=== PATIENT | female | born 1955 | race Caucasian/White ===

== ENCOUNTER → 2017-02-07 | Outpatient (CLI) | payer BC ==
--- NOTE | 2017-02-07 15:37 | MAMMOGRAPHY REPORT ---
BILATERAL DIGITAL SCREENING MAMMOGRAM WITH CAD: 02/07/2017 CLINICAL HISTORY: Routine screening. TECHNIQUE: Current study was also evaluated with a Computer Aided Detection (CAD) system. Bilateral CC and MLO views were obtained. COMPARISON: Comparison is made to exams dated: 02/07/2016 mammogram, 01/23/2014 mammogram, 02/01/2015 ma mmogram, 01/17/2013 mammogram, 01/18/2012 mammogram, and 01/12/2012 mammogram - [facility] nter. BREAST COMPOSITION: There are scattered areas of fibroglandular density in both breasts. FINDINGS: No suspicious masses, calcifications, or areas of architectural distortion are noted in ei ther breast. There has been no significant interval change compared to prior exams. IMPRESSION: ACR BI-RADS CATEGORY 1: NEGATIVE There is no mammographic evidence of malignancy. A 1 year screening mammogram is recommended. The pa tient will receive written notification of the results. Approximately 10% of breast cancers are not detected with mammography. A negative mammographic report should not delay biopsy if a clinically suggestive mass is present. Nallely Still M.D. ah/:02/07/2017 07:42:17 Pulp Bleacher: Matt Nesbitt RT(R)(M), [facility] letter sent: Normal 1/2 BI-RADS Code: ACR BI-RADS Category 1: Negative
== END | disposition home or self-care (01) ==
LOC: C.MAMM 07:08
PROVIDERS: ATTEND Obstetrics & Gynecology
DX: Z12.31 Encounter for screening mammogram for malignant neoplasm of breast (principal)

== ENCOUNTER → 2018-03-14 | Outpatient (CLI) | payer OTHER ==
--- NOTE | 2018-03-14 15:40 | MAMMOGRAPHY REPORT ---
BILATERAL DIGITAL SCREENING MAMMOGRAM TOMOSYNTHESIS WITH CAD: 03/14/2018 TECHNIQUE: The study was acquired using full field digital technology and interpreted from soft copy. Breast tomosynthesis in addition to standard 2D mammography was performed. Current study was also ev aluated with a Computer Aided Detection (CAD) system. COMPARISON: Comparison is made to exams dated: 02/07/2017 mammogram, 02/07/2016 mammogram, 02/01/2015 ma mmogram, 01/17/2013 mammogram, 07/19/2012 mammogram, and 01/18/2012 mammogram - [facility] enter. BREAST COMPOSITION: There are scattered areas of fibroglandular density in both breasts. FINDINGS: No suspicious masses, calcifications, or areas of architectural distortion are noted in either breast . There has been no significant interval change compared to prior exams. IMPRESSION: ACR BI-RADS CATEGORY 1: NEGATIVE There is no mammographic evidence of malignancy. A 1 year screening mammogram is recommended.( 019) The patient will receive written notification of the results. Some breast cancers are not detected with mammography. A negative mammographic report should not steven y biopsy if a clinically suggestive mass is present. Nallely Still M.D. ah/:03/14/2018 08:26:19 Vp Strategy: RT Roscoe(Shelia)(M), [facility] letter sent: Normal 1/2 BI-RADS Code: ACR BI-RADS Category 1: Negative
== END | disposition home or self-care (01) ==
LOC: C.MAMM 07:54
PROVIDERS: ATTEND Obstetrics & Gynecology
DX: Z12.31 Encounter for screening mammogram for malignant neoplasm of breast (principal)

== ENCOUNTER 2024-11-14 05:23 | Observation (INO) ==
--- NOTE | 2024-10-16 09:31 | PAT Medication Instructions ---
Medication Instructions Date of Service October 16, 2024 Home Medications Medication Instructions Recorded amlodipine 5 mg tablet 5 mg PO QAM #90 tabs 10/10/23 doxycycline hyclate 50 mg tablet 50 mg PO DAILY #90 tabs 10/10/23 ergocalciferol (vitamin D2) 1,250 1,250 mcg PO WK 12 weeks #14 caps 10/10/23 mcg (50,000 unit) capsule amlodipine 5 mg tablet 5 mg PO QAM cholecalciferol (vitamin D3) 125 mcg (5,000 unit) capsule 125 mcg PO DAILY doxycycline hyclate 50 mg tablet 50 mg PO DAILY ergocalciferol (vitamin D2) 1,250 mcg (50,000 unit) capsule 1,250 mcg PO WK ibuprofen 400 mg tablet 400 mg PO Q8H PRN Pain atorvastatin 20 mg tablet (Lipitor) 20 mg PO HS gabapentin 100 mg capsule (Neurontin) 100 mg PO DAILY neck pain omeprazole 40 mg capsule,delayed release 40 mg PO QAM spironolactone 25 mg tablet 25 mg PO QAM ASK your surgeon for instructions ibuprofen 400 mg tablet 400 mg PO Q8H PRN Pain DO NOT take the morning of surgery cholecalciferol (vitamin D3) 125 mcg (5,000 unit) capsule 125 mcg PO DAILY ergocalciferol (vitamin D2) 1,250 mcg (50,000 unit) capsule 1,250 mcg PO WK spironolactone 25 mg tablet 25 mg PO QAM Take morning of surgery With a small sip of water, OTHERWISE NOTHING TO EAT OR DRINK AFTER MIDNIGHT: amlodipine 5 mg tablet 5 mg PO QAM doxycycline hyclate 50 mg tablet 50 mg PO DAILY gabapentin 100 mg capsule (Neurontin) 100 mg PO DAILY neck pain omeprazole 40 mg capsule,delayed release 40 mg PO QAM Take evening before surgery atorvastatin 20 mg tablet (Lipitor) 20 mg PO HS Other Notes If you have any questions please call us at [phone] or [phone] or [phone] or [phone]
--- NOTE | 2024-10-24 10:24 | Anesthesiology Consultation ---
Date of Service October 24, 2024 Assessment & Plan (1) Encounter for pre-operative examination: - Infectious disease screening: Per assessment on 10/24/24- Patient had symptom onset 10/12/24 of cough/fatigue/sore throat. Presumed Influenza A as tested positive 10/14/24 ( had [facility] admission/now discharged). Patient's symptoms have resolved except rare dry, cough. DOS 11/14/24. Symptom onset > 11 days prior to surgery. Patient advised to contact PAT/surgeon if not at baseline prior to surgery. Nothing further needed at this time. - Outpatient joint assessment: Pt currently scheduled for inpatient pathway. If surgeon requests review for outpatient joint pathway, patient is an acceptable candidate for outpatient joint program from anesthesia standpoint pending surgeon's office assessment that patient is motivated, has good support and completes [facility] Program preop requirements. - Awaiting upcoming PCP visit ([facility], appt 10/27). Patient otherwise acceptable risk for surgery. Chart Review Chart Review: Patient seen in Pre Admission Testing Teaching & Discussion Pre-Anesthesia Teaching/Discussion Notes: Instructed NPO after midnight before surgery,except medications with 15 cc of water. Medication instructions provided according to the PAT guidelines. History Surgery Operation Date: 11/14/24 10:35 Proposed Procedures p Right Total Hip Arthroplasty - Rodolfo Laird MD Height/Weight Height: 5 ft 5.5 in Weight: 77.5 kg Allergies Allergy/AdvReac Type Severity Reaction Status Date / Time olmesartan [From Benicar] AdvReac Intermediate Diarrhea Verified 10/15/24 14:35 Medications Home Medications Medication Instructions Recorded Confirmed Last Taken amlodipine 5 mg tablet 5 mg PO QAM #90 tabs 10/10/23 10/15/24 Unknown cholecalciferol (vitamin D3) 125 125 mcg PO DAILY 10/10/23 10/15/24 Unknown mcg (5,000 unit) capsule doxycycline hyclate 50 mg tablet 50 mg PO DAILY #90 tabs 10/10/23 10/15/24 Unknown ergocalciferol (vitamin D2) 1,250 1,250 mcg PO WK 12 weeks #14 caps 10/10/23 10/15/24 Unknown mcg (50,000 unit) capsule ibuprofen 400 mg tablet 400 mg PO Q8H PRN Pain 04/09/24 10/15/24 Unknown atorvastatin 20 mg tablet (Lipitor) 20 mg PO HS 10/15/24 10/15/24 Unknown gabapentin 100 mg capsule 100 mg PO DAILY neck pain 10/15/24 10/15/24 Unknown (Neurontin) omeprazole 40 mg capsule,delayed 40 mg PO QAM 10/15/24 10/15/24 Unknown release spironolactone 25 mg tablet 25 mg PO QAM 10/15/24 10/15/24 Unknown Past Medical History Medical History (Updated 10/24/24 @ 10:43 by Keya Weber) Arthritis of right hip GERD (gastroesophageal reflux disease) History of kidney stones Passed on own HTN (hypertension) Hyperlipidemia Osteopenia Rosacea Exercise / Class Metabolic Activity II 4-5 Yardwork/Stairs/Walk up hill (one FS: No CP, no SOB) Past Family History Family History Uncle Colonic polyp Myocardial infarction Diabetes Mother Colorectal cancer, Onset Age: 79 Father Hypertension Stroke Grandfather (Paternal) Stroke Sister Diabetes Denies family history of Ovarian cancer Prostate cancer Breast cancer Past Surgical History Surgical History (Updated 10/24/24 @ 10:43 by Keya Weber) Adverse effect of anesthesia Slow to wake History of colonoscopy History of radiofrequency ablation (RFA) of nerve of cervical spine 09/03/24 [facility] History of wisdom tooth extraction S/P cataract surgery R/L S/P dilation and curettage S/P hysterectomy S/P tooth extraction S/P tubal ligation Past Anesthesia History No Family Hx of Anesthesia Complications and Other (Slow to wake) History of PONV No Hx of PONV and No Hx of Motion Sickness Social History Smoking Status: Never smoker Do You Dip or Chew Tobacco: No Hx Alcohol Use: No Hx Substance Use: No substance use type: does not use Review of Systems Tooth extraction (#18) done 10/21/24- healing well, currently on Amoxicillin (to be completed in a few days). Surgeon aware. Patient denies chest pain, shortness of breath, dyspnea on exertion, fever, chills, cough, wheezing, palpitations. Physical Exam Vital Signs BP 110/73 P 56 TEMP 98.4 SP02 96%RA RESP 16 Physical Full cervical extension range of motion. Full TMJ range of motion. TMD 3 finger breaths Mallampati Score III Dentition: missing tooth #18, several crowns Lungs: clear throughout to auscultation Cardiac: regular rate and rhythm, no murmurs noted Spine: normal Carotid arteries: negative bruit Extremities: no LE edema Lab Results Anesthesia Preop Results Results Anesthesia Widget: WBC 6.49 K/ul (4.8-10.8) 10/24/24 Hgb 13.9 g/dl (12.0-16.0) 10/24/24 Hct 41.9 % (37.0-47.0) 10/24/24 Plt 290 K/uL (130-400) 10/24/24 Na 140 mmol/L (136-145) 10/08/24 K 4.6 mmol/L (3.5-5.1) 10/08/24 Cl 103 mmol/L (98-107) 10/08/24 CO2 29 mmol/L (21-32) 10/08/24 BUN 17 mg/dl (6-23) 10/08/24 Creat 1.10 mg/dl (0.6-1.2) 10/08/24 Glucose Level 82 mg/dl (70-99(Fasting)) 10/08/24 PT 10.9 Seconds (9.0-12.0) 10/24/24 PTT 26 Seconds (21-31) 10/24/24 INR 1.0 (0.9-1.1) 10/24/24 Blood Type O Positive 10/24/24 Antibody Screen NEGATIVE 10/24/24 Testing Electrocardiogram Date: 10/24/24 SB at 50bpm. "Otherwise normal ECG" Chest X-Ray Date: 10/24/24 FINDINGS: Heart size and pulmonary vasculature are normal. No effusion or consolidation. IMPRESSION: No acute findings.
--- NOTE | 2024-11-07 07:55 | History & Physical Report ---
Date of Service November 07, 2024 Assessment & Plan (1) Arthritis of hip: 69-year-old female with a several year history of increasing right hip pain discomfort and arthritis. Looks inflammatory in nature. She has failed conservative treatment. It is affecting her quality life she like to have her hip fixed. Plan: Mustapha take her to the operating room do a right total hip placement for the [place] of this procedure explained. Informed consent was obtained. She is planned to be discharged to home with some home health. Will use aspirin for DVT prophylaxis. (2) Bursitis of right hip: History of Present Illness Chief Complaint: . Persistent and progressive right hip pain. Primary Care Provider: Liz Osman MD . Patient is a 69-year-old female who has a several history of increasing right hip pain discomfort described to gotten worse over time. She initially saw Dr. Willis off over [facility] and was treated with some physical therapy and some bursal injections. This became less successful over time. Over time her pain is migrated more to the groin area. She did have an MRI back in 2022 which showed significant hip arthritis. She has had several intra-articular hip injection which have become less successful over time. She describes groin pain thigh pain. To the more she is up and onto more it hurts and the more she limps. She is ready to have her hip fixed. Allergies Allergy/AdvReac Type Severity Reaction Status Date / Time olmesartan [From Benicar] AdvReac Intermediate Diarrhea Verified 10/29/24 08:19 Home Medications Medication Instructions Recorded Confirmed Type cholecalciferol (vitamin D3) 125 125 mcg PO DAILY 10/10/23 10/29/24 History mcg (5,000 unit) capsule doxycycline hyclate 50 mg tablet 50 mg PO DAILY #90 tabs 10/10/23 10/29/24 Rx ibuprofen 400 mg tablet 400 mg PO Q8H PRN Pain 04/09/24 10/29/24 History gabapentin 100 mg capsule 100 mg PO DAILY neck pain 10/15/24 10/29/24 History (Neurontin) amlodipine 5 mg tablet 5 mg PO QAM #90 tabs 10/27/24 10/29/24 Rx atorvastatin 20 mg tablet (Lipitor) 20 mg PO HS #90 tabs 10/27/24 10/29/24 Rx fluoxetine 20 mg tablet 20 mg PO DAILY #30 tabs 10/27/24 10/29/24 Rx omeprazole 40 mg capsule,delayed 40 mg PO QAM #90 caps 10/27/24 10/29/24 Rx release spironolactone 25 mg tablet 25 mg PO QAM #90 tabs 10/27/24 10/29/24 Rx Past Med/Surg History Problem List Encounter for pre-operative examination Cervical spondylosis Elevated lipoprotein(a) Osteopenia Arthritis of hip Bursitis of right hip Medial epicondylitis Medical History History of kidney stones Passed on own Osteopenia Arthritis of right hip Hyperlipidemia Rosacea GERD (gastroesophageal reflux disease) HTN (hypertension) Surgical History History of radiofrequency ablation (RFA) of nerve of cervical spine 09/03/24 [facility] Adverse effect of anesthesia Slow to wake History of colonoscopy History of wisdom tooth extraction S/P cataract surgery R/L S/P tubal ligation S/P tooth extraction S/P hysterectomy S/P dilation and curettage Family History Uncle Colonic polyp Myocardial infarction Diabetes Mother Colorectal cancer, Onset Age: 79 Father Hypertension Stroke Grandfather (Paternal) Stroke Sister Diabetes Denies family history of Ovarian cancer Prostate cancer Breast cancer Social History Smoking Status: Never smoker Second Hand Exposure: No; Do You Dip or Chew Tobacco: No; Hx Alcohol Use: No Hx Substance Use: No Preferred Language: Sinhala Communication Ability: Effective Associate Program Manager Required: No Beliefs That Will Affect Care: None marital status: Current Living Situation: Spouse current occupational status: retired Feels Safe at Home: Yes Childhood Exposure to Second-Hand Smoke: No Dental Care, Regularly: Yes Physical Activity Frequency: 3-4 Times per Week Seatbelt Use: always Sunscreen Use: Yes Assistive Devices: None Review of Systems All systems reviewed & are unremarkable except as noted in HPI & below. Physical Exam . Physical examination reveals a pleasant healthy female. Looks be in reasonably good health. Examination of the right hip and leg reveal patient walks with slightly antalgic gait. Leg lengths appear equal. She does have some stiffness and pain with hip motion. She can internally rotate to about 10 degrees but is painful. Negative straight leg raise. She is neurologically intact. A little bit of lateral hip tenderness to palpation. Respiratory normal respiratory effort, lungs clear to auscultation Cardiovascular RRR, no murmur, no edema Gastrointestinal (Abdomen) normal bowel sounds, soft, nontender, no hepatosplenomegaly Results & Data Results & Data Laboratory Results . Diagnostic Findings . X-rays of the right hip were reviewed. Shows progressive right hip arthritis. Got fairly concentric disease with cystic changes in the acetabular and femoral head. Bone density looks good. The left hip looks normal. PG Care Time/CCT Total # of Minutes Spent Total Time Spent with Patient: Total time spent is greater than 50% in coordination of care (as documented) at patient's floor/unit and/or counseling patient: Coding Level of Care Code None Diagnoses Arthritis of hip M16.10 Bursitis of right hip M70.71
[2024-11-14] MEDS: METOCLOPRAMIDE HCL 10 MG TABLET PO SCH (05:51)
[2024-11-14] MEDS: CeleBREX 200 MG CAP PO SCH (05:51)
[2024-11-14] MEDS: FAMOTIDINE 20 MG TAB PO SCH (05:51)
[2024-11-14] MEDS: ACETAMINOPHEN 500 MG TAB PO SCH ×2 (05:51→12:06)
[2024-11-14] MEDS: LR 500ML BOLUS, THEN 15ML/HR IV SCH (06:18)
[2024-11-14] MEDS: dexAMETHasone**PF** 10 MG/ML VIAL IV SCH (06:18)
[2024-11-14] MEDS ORDERED: BUPIVACAINE 0.5 % 5 MG/1 ML PF 10ML VIAL ONE (06:29)
[2024-11-14] MEDS ORDERED: ePHEDrine sulfate 50 MG/ML AMP ONE (06:30)
[2024-11-14] MEDS ORDERED: PHENYLEPHRINE 100MCG/ML 5ML SYR ONE (06:30)
[2024-11-14] MEDS ORDERED: fentaNYL citrate PF 100 MCG/2 ML VIAL ONE (06:31)
[2024-11-14] MEDS ORDERED: MIDAZOLAM HCL 1 MG/ML 2ML VIAL ONE (06:31)
[2024-11-14] MEDS ORDERED: PROPOFOL IV EMULSION 10 MG/ML 20 ML VIAL IV ONE ×4 (06:32)
--- NOTE | 2024-11-14 06:44 | History & Physical Bridge Note ---
Date of Service November 14, 2024 History & Physical Bridge Note I have examined the patient, reviewed the History & Physical and in the interval since the performance of the History & Physical I have noted the following changes of clinical significance: no changes noted
[2024-11-14] MEDS: TRANEXAMIC ACID 1,000 MG **IV Pre-op IV SCH (06:48)
[2024-11-14] MEDS ORDERED: HYDROmorphone INJ 1 MG/ML SYRINGE IV PRN (06:57)
[2024-11-14] MEDS ORDERED: FLUMAZENIL 0.1 MG/1 ML 10 ML VIAL IV PRN (06:57)
[2024-11-14] MEDS ORDERED: ePHEDrine sulfate 50 MG/ML AMP IV PRN (06:57)
[2024-11-14] MEDS ORDERED: ONDANSETRON INJ 2 MG/ML 2 ML VIAL IV PRN ×2 (06:57→10:23)
[2024-11-14] MEDS ORDERED: fentaNYL citrate PF 100 MCG/2 ML VIAL IV PRN (06:57)
[2024-11-14] MEDS ORDERED: ATROPINE SULFATE 0.1 MG/ML 10ML SYR IV PRN (06:57)
[2024-11-14] MEDS ORDERED: NALOXONE HCL 0.4 MG/1 ML VIAL/CARP IV PRN ×2 (06:57→10:23)
[2024-11-14] MEDS ORDERED: PROMETHAZINE HCL 6.25 MG in SODIUM CHLORIDE 0.9% 50 ML IV PRN (06:57)
[2024-11-14] MEDS: ceFAZolin 2000MG 2,000 MG/15 ML SYR IV SCH (06:57)
[2024-11-14] MEDS ORDERED: ONDANSETRON INJ 2 MG/ML 2 ML VIAL ONE (07:21)
[2024-11-14] MEDS ORDERED: KETOROLAC 30 MG/ML VIAL ONE (07:22)
[2024-11-14] MEDS: BUPIVACAINE/EPINEPHRINE 0.5% MPF 1:200,000 30 ML VIAL ONE (07:34)
--- NOTE | 2024-11-14 08:28 | Operative Report ---
PG Post Operative Report Pre & Post Diagnosis Operation Date: 11/14/24 07:00 Pre-Op Diagnosis: Right Hip Degenerative Joint Disease Post-Op Diagnosis: Right Hip Degenerative Joint Disease I identified the patient and participated in the time-out.: Yes Procedure Operation Date: 11/14/24 07:00 Actual Procedures p Right Total Hip Arthroplasty, Uncemented - Rodolfo Laird MD Surgeon Rodolfo Laird MD Anesthesiologist And Critical Care Terry Carrero PA-C Estimated Blood Loss 100 Findings Consistent with Post-Op Diagnosis Operative findings revealed advanced right hip DJD. She had a moderate-sized hip joint effusion. She had grade 4 [id number] disease. Not much in the way of osteophyte formation. Specimens Right femoral head sent for pathology. Anesthesia Type Spinal MAC Complications none Disposition Accompanied Patient To Recovery: No Indications Patient is a 69-year-old female whose had a several year history of increasing right hip pain discomfort described to gotten worse over time. She been through extensive conservative treatment over the past several years. Her symptoms continue to progress and will became less responsive conservative care. X-rays show progressive hip arthritis. She elected proceed with right total hip arthroplasty. Description of Procedure Operative implants consists of: 1 Biomet G7 size 54 mm acetabular shell. 2. 6.5 cancellous acetabular screws 1 at 35 mm length by 30 mm length. 3. Lejunior hole mender hand. 4. Highly cross-linked polyethylene liner with a 54 mm outer diameter and 36 mm inner diameter. 5. DePuy Corail size 11 KLA femoral stem. 6. +5/36 mm ceramic articular ball. The patient was taken the operating, identified, placed on the operating table in the supine position. All conductors were appropriately padded. IV antibiotics were provided by the anesthesia team. A spinal anesthetic had been implemented holding area. A Michelle catheter was placed in a sterile fashion. The patient was then placed in the left lateral decubitus position. An axillary roll was placed. A Stulberg positioner was used for positioning. The right hip and leg were then prepped and draped in usual sterile fashion. A posterolateral approach to the right hip was then performed to a curvilinear incision centered over the greater trochanter. Sharp dissection was got through subcutaneous tissue down below the IT band gluteal fascia. The IT band gluteal fascia was sized longitudinally in line with skin incision. The underlying greater bursa was excised. The piriformis and external rotators along with the posterior hip joint capsule were then released from the posterior aspect of the at the hip as a single layer. Great care was taken throughout the procedure protect the sciatic nerve at all times. The hip was then internally rotated and dislocated. A femoral neck osteotomy cut was made with a Final Cut about 8 mm above the lesser trochanter. Femoral head was removed and sent for pathology. The femur was retracted anteriorly. Attention then drawn the acetabulum. The acetabulum labrum was excised. The pulmonary fat was excised. Sequential reaming the acetabulum was then performed again with a size 43 and progressing up to a 53. I reamed a little bit with a 54 reamer and then placed a 54 mm Biomet G7 acetabular shell in about 40 degrees lateral opening and 20 degrees of anteversion. It was fixed with two 6.5 screws. A trial liner was placed. Attention was then drawn the femur. The proximal femur was entered with cookie-cutter followed by canal finder. I then broached beginning the size 8 and progressed up to 11 we got excellent fit at 11. I trialed the hip and the +5 articular ball provided full stability appropriate soft tissue tension, and what appeared to be equal leg lengths. We elect to place these implants. All trial implants were removed. An apex hole mender hand was placed. A highly cross-linked polyethylene liner was placed. A size 11 KLA femoral stem was impacted in position. +5/36 mm articular ball was placed hip. The hip was then relocated and once again found to be stable. Attention drawn thrombosing. The wound was irrigated coconuts and pulsatile lavage solution. The posterior capsule and external rotators then repaired through drill holes in the posterior trochanter with #2 Tycron suture. The IT band gluteal fascia were then closed in 1 PDS suture running fashion. The subcutaneous tissue was then closed in 2 layers the deep layer #1 Vicryl suture and subcutaneous tissues with 2-0 Dexon suture in a buried interrupted fashion. Skin was closed skin eddi. Leg was then cleaned and dried and a sterile dressing with Xeroform, 4 fours, ABD pad and foam tape was applied. The patient then transferred to the recovery in stable condition. Patient tolerated procedure well and there were no complications. Terry Carrero, my physician assistant technician, was present for the entire procedure. His assistance was essential and required for appropriate patient positioning, prepping and draping, surgical exposure, performing the technical details of the operation, placement the implants, closure of the wound, and placement of the sterile bandage. I attest to the content of the Intraoperative Record and any orders documented therein. Any exceptions are noted below.
--- NOTE | 2024-11-14 08:58 | XRay Report ---
XR hip 1V RT w pelvis CLINICAL HISTORY: IN PACU - Post Surgical COMPARISON: 02/20/2022 FINDINGS: Interval right hip prosthesis shows no hardware complication. There is expected soft tissu e gas. Skin eddi are present bilaterally. IMPRESSION: Unremarkable postoperative exam. ACT 112: Negative or not required by law. Electronically signed by: Song Jin M.D. 11/14/2024 8:57 AM
--- NOTE | 2024-11-14 10:08 | Anesthesiology Progress Note ---
Date of Service November 14, 2024 Anesthesia Post Procedure Vital Signs Vital Signs: Temp Pulse Resp BP Pulse Ox O2 Del Method O2 Flow Rate 11/14/24 09:45 68 16 114/59 L 96 Nasal Cannula 2 11/14/24 09:30 36.4 C L 63 17 113/61 93 Room Air 11/14/24 09:20 66 17 108/57 L 98 Room Air 11/14/24 09:10 67 15 106/61 95 Room Air 11/14/24 09:00 67 14 108/55 L 92 Room Air 11/14/24 08:50 69 15 111/62 94 Oxymask 3 11/14/24 08:40 75 18 103/63 92 Oxymask 3 11/14/24 08:30 73 19 102/55 L 97 Oxymask 6 11/14/24 08:20 71 17 104/53 L 97 Oxymask 6 11/14/24 08:17 36.3 C L 72 20 103/54 L 96 Oxymask 6 11/14/24 05:40 36.7 C 62 20 130/72 96 Room Air Pain Intensity Right Hip: Pain Intensity: 2 Transfer of Care Handoff Completed per policy Notes Mental Status: alert / awake / arousable Patient Amnestic to Procedure: Yes Nausea / Vomiting: adequately controlled Pain: adequately controlled Airway Patency, RR, SpO2: stable & adequate BP & HR: stable & adequate Hydration State: stable & adequate Neuraxial Anesthesia: was administered and sensory block is resolving Anesthetic Complications: no major complications apparent
[2024-11-14] MEDS ORDERED: ALUMINUM/MAGNESIUM SUSP 30 ML UDC PO PRN (10:23)
[2024-11-14] MEDS ORDERED: bisacodyL 10 MG SUPP PR PRN (10:23)
[2024-11-14] MEDS ORDERED: diphenhydrAMINE Capsule 25 MG CAP PO PRN (10:23)
[2024-11-14] MEDS ORDERED: METOCLOPRAMIDE HCL INJ 5 MG/ML 2 ML VIAL IV PRN (10:23)
[2024-11-14] MEDS ORDERED: MAGNESIUM HYDROXIDE SUSP 30 ML UDC PO PRN (10:23)
[2024-11-14] MEDS: LR 60ML/HR IV SCH (10:26)
[2024-11-14] MEDS: amLODIPine BESYLATE 5 MG TAB PO SCH (12:05)
[2024-11-14] MEDS: DOCUSATE SODIUM 100 MG CAP PO SCH (12:06)
[2024-11-14] MEDS: ASPIRIN 81 MG ECTAB PO SCH (12:06)
[2024-11-14] MEDS: SPIRONOLACTONE 25 MG TAB PO SCH (12:07)
[2024-11-14] MEDS: MULTIVITAMIN TAB PO SCH (12:07)
[2024-11-14] MEDS: GABAPENTIN 100 MG CAP PO SCH (12:07)
[2024-11-14] MEDS: KETOROLAC 30 MG/ML VIAL IV SCH (12:08)
[2024-11-14] MEDS: SENNA 8.6 MG TAB PO SCH ×2 (12:15→21:16)
[2024-11-14] MEDS ORDERED: Nursing to Pharmacy Communication SCH (14:00)
[2024-11-14] MEDS: ceFAZolin 1000MG 1,000 MG/7.5 ML SYR IV SCH (14:54)
[2024-11-14] MEDS: TRANEXAMIC ACID / 0.7% NACL 1,000 MG/100 ML BAG IV SCH (14:54)
[2024-11-14] MEDS: ASCORBIC ACID 500 MG TAB PO SCH (17:56)
[2024-11-14] MEDS: ATORVASTATIN 20 MG TAB PO SCH (21:15)
[2024-11-14] MEDS: HYDROmorphone INJ 0.5 MG/0.5 ML SYR IV PRN (22:41)
[2024-11-15 07:23] LABS: Basophils # (auto) 0.02 K/uL (0.00-0.20); Basophils % (auto) 0.1 %; Hematocrit (blood only) 34.7 % (37.0-47.0); Hemoglobin 11.9 g/dl (12.0-16.0); Immature Granulocytes # (auto) 0.07 K/uL (0.01-0.20); Immature Granulocytes % (auto) 0.5 %; Lymphocytes # (auto) 1.23 K/uL (1.20-3.40); Lymphocytes % (auto) 8.3 %; Mean Corpuscular Hgb Conc 34.3 g/dL (32.0-36.0); Mean Corpuscular Volume 90.4 fL (80.0-100.0); Mean Platelet Volume 10.2 fL (9.4-12.4); Monocytes # (auto) 0.79 K/uL (0.11-0.59); Monocytes % (auto) 5.4 %; Neutrophils # (auto) 12.65 K/uL (1.40-6.50); Neutrophils % (auto) 85.7 %; Platelet Count 222 K/uL (130-400); RDW Coefficient of Variation 12.4 % (11.5-14.5); RDW Standard Deviation 40.6 fL (36.4-46.3); Red Blood Count 3.84 M/uL (4.20-5.40); White Blood Count 14.76 K/ul (4.8-10.8)
[2024-11-15 07:37] LABS: BUN Creatinine Ratio 21.2 (10-20); Calcium 9.2 mg/dl (8.6-10.3); Creatinine Clr Calc Pharmacy 56.3 ml/min
[2024-11-15 07:56] VITALS: RESP 16
--- NOTE | 2024-11-15 07:57 | Orthopedic Progress Note ---
Date of Service November 15, 2024 Assessment & Plan (1) Status post right hip replacement: Plan: 69-year-old female postop day 1 from right knee replacement doing pretty well. Pains controlled. Dislocated. She is neurologically intact. Plan: 1. DVT prophylaxis including thigh-high teds, SCDs, aspirin twice a day. 2. PT/OT. Weight-bear as tight. Right total hip protocol. 3. Pain control. Doing well with current pain regimen. 4. Disposition. Plan to discharge home with some home health later today. Admission and Anticipated Discharge Date Admission Date: November 14, 2024 Subjective 69-year-old female postop day 1 from right hip replacement. She is doing pretty well. Pains controlled. She was up and walking yesterday and seems to be doing pretty well. No chest pain or shortness of breath. Not feeling dizzy or lightheaded. Physical Exam Physical Exam: Physical exam shows a pleasant middle-age female. She is lying in bed looks pretty comfortable. Examination of the right hip and leg reveals the leg lengths to be equal. Leg is well aligned. Thigh is soft and supple. Dressings clean dry and intact. She can dorsiflex and plantarflex her foot appropriately. Results & Data Vital Signs (Past 12 Hours) Vital Signs Temp Pulse Resp BP Pulse Ox O2 Del Method 11/15/24 03:00 36.5 C 53 L 18 107/69 94 Room Air 11/14/24 23:00 36.6 C 57 L 18 124/73 95 Room Air Laboratory Results Hemoglobin is 11.9. Macro 34.7. Electrolytes are stable.
[2024-11-15] MEDS: DOXYCYCLINE HYCLATE 50 MG CAP PO SCH (08:29)
[2024-11-15] MEDS: PANTOprazole 40 MG TAB PO SCH (08:30)
[2024-11-15] MEDS: FLUoxetine HCL 20 MG CAP PO SCH (08:30)
[2024-11-15] MEDS: dexAMETHasone 10 MG in SYRINGE 0 ML IV SCH (08:31)
[2024-11-15] MEDS: CHOLECALCIFEROL 125 MCG (5,000 UNITS) TAB PO SCH (08:31)
[2024-11-15] MEDS: traMADol HCL 50 MG TABLET PO PRN (08:39)
[2024-11-15 13:11] VITALS: BP 114/68; PULSE 78; TEMP 97.9; O2SAT 95
--- NOTE | 2024-11-19 06:38 | Discharge Summary ---
Date of Service November 19, 2024 Admission HPI (Per Admitting) . Patient is a 69-year-old female who has a several history of increasing right hip pain discomfort described to gotten worse over time. She initially saw Dr. Willis off over a [facility] and was treated with some physical therapy and some bursal injections. This became less successful over time. Over time her pain is migrated more to the groin area. She did have an MRI back in 2022 which showed significant hip arthritis. She has had several intra-articular hip injection which have become less successful over time. She describes groin pain thigh pain. To the more she is up and onto more it hurts and the more she limps. She is ready to have her hip fixed. Admission Exam (Per Admitting) . Physical examination reveals a pleasant healthy female. Looks be in reasonably good health. Examination of the right hip and leg reveal patient walks with slightly antalgic gait. Leg lengths appear equal. She does have some stiffness and pain with hip motion. She can internally rotate to about 10 degrees but is painful. Negative straight leg raise. She is neurologically intact. A little bit of lateral hip tenderness to palpation. Principal Diagnosis Same as "Discharge Diagnosis" noted below under Discharge Instructions. Discharge Data Procedures Performed Operation Date: 11/14/24 07:00 Actual Procedures p Right Total Hip Arthroplasty, Uncemented - Rodolfo Laird MD Hospital Course (1) Status post right hip replacement: This is a 69 year old patient admitted on 11/14/24 and underwent total hip arthroplasty. She tolerated the procedure well and there were no complications. Transferred to the PACU post op and later to the orthopedic floor for further care. She was given ancef for antibiotic prophylaxis. She was also given FREYA stockings, SCDs, and aspirin for DVT prophylaxis. Hemoglobin, hematocrit, and vital signs were monitored during her hospital stay and remained stable. Did not require any blood transfusions. There were no complications during her hospital stay. By post op day #1 the patient was tolerating a regular diet, pain was reasonably controlled with oral pain medicine, and she was participating in physical therapy. On post op day #1 the patient was discharged home and set up with home health care. She was given printed discharge instructions including prescriptions for extra strength tylenol, aspirin, cefadroxil, zofran, senokot, and tramadol. Continue physical therapy, weight bearing as tolerated. Continue FREYA stockings. Follow up approximately 2 weeks post op or sooner if there are problems or concerns. PG Care Time/CCT Total # of Minutes Spent Total Time Spent with Patient: Total time spent is greater than 50% in coordination of care (as documented) at patient's floor/unit and/or counseling patient: Discharge Plan Discharge Items Patient Disposition: Home - Home Health Services Reason For Visit: Osteoarthritis Hip Right Discharge Diagnosis: Right Hip Replacement Activity: Per Instructions section Activity Comment: Follow/Obey hip precautions at all times. Weightbearing: Full weightbearing Weightbearing Comment: Weightbear as tolerated obeying hip precautions at all times. Non-emergency contact: Surgeon Call non-emergency contact if: you have any medication questions Follow-up/Referrals: Liz Osman MD [Primary Care Provider] - Diet: Regular Addtl Attending Provider Instructions: ACTIVITY RECOMMENDATIONS: Diet: * You may resume previous diet. Physical Therapy: * Aggressive physical therapy is not usually needed. You will learn to take care of yourself safely and walk. * Follow the "Hip Precautions Instructions." * In some cases, the certified social workers in health care at the hospital will arrange to have a therapist come to your house for the first couple of weeks to help you learn these skills. * You need to practice on your own or with the help of a family member as needed. * When you learn these skills, most of the therapy can be done on your own. Home Exercise: * You were shown a series of exercises in the hospital. Do these exercises three to four times each day including the exercises you were shown in physical therapy. Walking: * Get up and walk several times each day. For the first four weeks, try not to stand or walk for more than one hour at a time. If you do stand or walk for more than one hour, you will not hurt anything, but your leg will likely swell. * As you feel comfortable, you may change from the walker or crutches to a cane and then to independent walking. MEDICATIONS: New Medicine: * You will likely be taking one or more of these medicines: 1. Tramadol - Take, as directed, when you need it, every six hours to control your pain. 2. Aspirin - Thins your blood to lessen the chance of forming a blood clot. * The most common side effects of pain medicine and iron are nausea and constipation. If nausea or constipation is too much of a problem or if you have any questions about your new medicines or doses, call [facility] at . We will try to help you manage these issues. "VERY IMPORTANT TO READ AND REVIEW" Pain: * The immediate post-operative period after hip replacement surgery is often quite painful. * You are given a prescription for pain medicine. You should take it, as directed, when you need it, especially before physical therapy and before going to bed. Pain that interferes with sleep is very common and can last several months. * You will likely need pain medicine for the first two to four weeks. It will not stop all of the pain. The pain will lessen and as you feel better, you may change to milder pain medicine such as Tylenol. * The most common side effects of pain medicine are nausea and constipation, so don't take more than you need. SPECIAL CARE INSTRUCTIONS: TEDs/Elastic Stockings: * The white elastic stockings help limit swelling and prevent blood clots from forming in your legs. The more you wear them, the more they work. * Wear them for six weeks. Incision Site Care: * Remove dressing postoperative day 2 and then shower. Keep direct shower pressure off the incision site. * After showering, cover eddi with dry gauze and change daily or more frequently if the dressing is getting saturated with drainage. * May completely stop using bandage if wound is dry and no drainage * [place] are removed between 2 and 3 weeks post-op. If your follow-up appointment is made before 2 weeks, please have your appointment re- scheduled. It is too early to remove the eddi. Prevention of Infection: * Take antibiotics one hour before any dental cleaning, dental work, urological procedure, gastrointestinal procedure or any invasive surgery in order to prevent your new joint from getting infected. * You may get the antibiotics from the doctor performing the procedure or you may call our office at before and we will call in a prescription to the pharmacy of your choice. Things to Watch For: * Drainage from the incision site that occurs more than one week after your surgery. * Severely increased leg pain or swelling. * Increased redness at the incision site. * Fever above 102 degrees Fahrenheit. * Unusual chest pain or shortness of breath. * Unusual pain or burning with urination. Call [facility] at with any of the above problems or if you have any questions about your medicines or recovery. FOLLOW UP VISIT: Make an appointment to see your doctor for approximately two weeks after surgery for a progress check and staple removal by calling the office at . Pending Studies at Discharge: No Stand-Alone Forms: My [facility], Smoking Cessation Medications and DC Order Prescriptions: Continued tramadol 50 mg tablet 50 - 100 mg PO Q6 PRN (Reason: pain) Qty: 40 0RF Rx Instructions: Take as needed for pain ondansetron 4 mg tablet,disintegrating 4 mg PO Q8 PRN (Reason: nausea) Qty: 20 1RF Rx Instructions: Take as needed for nausea sennosides [Senokot] 8.6 mg tablet 8.6 mg PO BID 14 Days Qty: 28 0RF Rx Instructions: Take two times a day to prevent/treat constipation acetaminophen [Tylenol Extra Strength] 500 mg tablet 1,000 mg PO TID 30 Days Qty: 180 0RF Rx Instructions: take 3 times per day to lessen pain. aspirin [Robert Low Dose Aspirin] 81 mg tablet,delayed release (DR/EC) 81 mg PO BID 45 Days Qty: 90 0RF Rx Instructions: Take to prevent blood clots. cholecalciferol (vitamin D3) 125 mcg (5,000 unit) capsule 125 mcg PO DAILY doxycycline hyclate 50 mg tablet 50 mg PO DAILY Qty: 90 3RF fluoxetine 20 mg tablet 20 mg PO DAILY Qty: 30 2RF Rx Instructions: start with 1/2 tablet daily for 1-2 weeks, then increase to full tablet. amlodipine 5 mg tablet 5 mg PO QAM Qty: 90 3RF spironolactone 25 mg tablet 25 mg PO QAM Qty: 90 3RF omeprazole 40 mg capsule,delayed release(DR/EC) 40 mg PO QAM Qty: 90 3RF atorvastatin [Lipitor] 20 mg tablet 20 mg PO HS Qty: 90 3RF gabapentin [Neurontin] 100 mg capsule 100 mg PO DAILY Discontinued ibuprofen 400 mg tablet 400 mg PO Q8H PRN (Reason: Pain) Admission Data Admit Date/Time: 11/14/24 08:21 Attending Provider: Rodolfo Laird Admit Provider: Rodolfo Laird Primary Care Provider: Liz Osman Other Providers: [facility],Home [facility] Other Interventions: Discharge Summary Assessment (RN) Last Done: 11/15/24 13:11
== END 2024-11-15 15:19 | disposition home health service (06) ==
LOC: 3W 05:23 → ASU 05:23